=== PATIENT | male | born 1990 | race Hispanic/Latino ===

== ENCOUNTER 2017-12-30 17:38 | Emergency (ER) | payer SELFPAY ==
[2017-12-30] MEDS ORDERED: NACL 0.9% 1000 ML 1,000 ML IV ONE (17:49)
[2017-12-30] MEDS ORDERED: BOOSTRIX IM ONE (17:50)
[2017-12-30] MEDS ORDERED: MORPHINE IV ONE (17:50)
[2017-12-30] MEDS ORDERED: MORPHINE ONE (17:50)
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
[2017-12-30] MEDS ORDERED: ZOFRAN ONE (17:52)
[2017-12-30 18:00] LABS: Basophils # (Auto) 0.1 K/mm3 (0.0-0.1); Basophils % (Auto) 0.9 % (0.0-1.8); Eosinophils # (Auto) 0.1 K/mm3 (0.0-0.4); Eosinophils % (Auto) 1.5 % (0.0-4.3); Hematocrit 41.8 % (35.5-45.6); Hemoglobin 13.8 gm/dl (11.8-15.2); Lymphocytes # (Auto) 3.3 K/mm3 (1.2-5.4); Mean Corpuscular HGB Conc 33 % (32-34); Mean Corpuscular Hemoglobin 30 pg (28-32); Mean Corpuscular Volume 90 fl (84-94); Monocytes # (Auto) 0.7 K/mm3 (0.0-0.8); Monocytes % (Auto) 9.7 % (0.0-7.3); Platelet Count 306 K/mm3 (140-440); Red Blood Count 4.64 M/mm3 (3.65-5.03); Red Cell Distribution Width 12.9 % (13.2-15.2)
[2017-12-30] MEDS ORDERED: UNASYN/NS 3 GM/100 ML 3 GM/100 ML BAG IV SCH (18:00)
[2017-12-30] MEDS ORDERED: ZOFRAN IV ONE (18:09)
[2017-12-30 18:12] LABS: BUN/Creatinine Ratio 13; Blood Urea Nitrogen 12 mg/dL (9-20); Calcium 9.3 mg/dL (8.4-10.2); Hemolysis Index 12
[2017-12-30] MEDS ORDERED: SUBLIMAZE IV ONE (18:22)
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
[2017-12-30] MEDS ORDERED: TRIPLE ANTIBIOTIC TP ONE ×2 (19:50→19:52)
[2017-12-30] MEDS ORDERED: DILAUDID IV ONE (20:44)
[2017-12-30] MEDS ORDERED: TORADOL IV ONE (20:44)
[2017-12-30 22:57] VITALS: BP 142/85
== END 2017-12-30 22:00 | disposition home or self-care (01) ==
LOC: ED 17:38
DX: S81.802A Unspecified open wound, left lower leg, initial encounter (principal); S81.801A Unspecified open wound, right lower leg, initial encounter; W34.00XA Accidental discharge from unspecified firearms or gun, initial encounter; Y93.89 Activity, other specified; Y92.89 Other specified places as the place of occurrence of the external cause; Y99.8 Other external cause status
CPT/HCPCS: 36415; 72170; 73552; 80048; 85025; 90471; 90715; 96361; 96365; 96375; 99284; G0480; J0295; J1170; J1885; J2270; J2405; J3010; J7030; 80320; 99291; A6250